=== PATIENT | male | born 1945 | race Caucasian/White ===

== ENCOUNTER 2021-11-28 22:42 | Emergency (ER) | payer MEDICARE, OTHER ==
[~2021-11-28] VITALS: Ht 188 cm; Wt 100.7 kg
[2021-11-28] MEDS ORDERED: TOPROL XL50 MG (23:08)
[2021-11-29 01:17] LABS: ABSOLUTE EOSINOPHILS 0.2 thou/uL (0.0-0.7); ABSOLUTE LYMPHOCYTES 1.6 thou/uL (0.8-5.3); ABSOLUTE MONOCYTES 0.6 thou/uL (0.0-1.2); BASOPHILS 0.6 %; EOSINOPHILS 3.3 %; HEMATOCRIT 38.8 % (42.0-52.0); HEMOGLOBIN 12.9 gm/dL (14.0-18.0); LYMPHOCYTES 24.9 %; MCH 31.9 pg (26.0-34.0); MCHC 33.3 g/dL (28.0-37.0); MCV 95.9 fL (80.0-100.0); MONOCYTES 9.3 %; MPV 7.8 fl. (7.2-11.1); NUCLEATED RBCS 0 /100WBC; PLATELET COUNT* 225 thou/uL (150-400); POLYS 61.9 %; RBC 4.05 mil/uL (4.50-6.00); RDW-CV 13.9 % (10.5-14.5); WBC 6.4 thou/uL (4.0-11.0)
[2021-11-29 01:21] LABS: CALCIUM 8.8 mg/dL (8.5-10.1); CREATININE 1.1 mg/dL (0.6-1.3); POTASSIUM 4.1 mmol/L (3.5-5.1)
[2021-11-29 01:26] LABS: ALBUMIN 3.5 g/dL (3.4-5.0); TOTAL BILIRUBIN 0.3 mg/dL (<0.1-1.0); TOTAL PROTEIN 7.2 g/dL (6.4-8.2)
[2021-11-29 02:38] VITALS: BP 131/56
--- NOTE | 2021-11-29 09:29 | EKG ---
[place] [address] ELECTROCARDIOGRAM REPORT Name: MAGALY GUTIERRES Room: [facility]#: [id number] Admission: 11/28/21 Attend Phys: Discharge: 11/29/21 Date of : 41 Date of Service: 11/28/212311 Report #: [id number] THIS REPORT FOR: //name// [facility] ED Test Date: 2021-11-28 Test Time: 23:12:32 Pat Name: MAGALY GUTIERRES Department: Room: Gender: Museum Host/Hostess: : 1945 Requested By: Rowan Griffin Order Number: [id number] MD: Erickson Jay Measurements Intervals [place] Rate: 54 P: 0 NE: 97 QRS: -2 QRSD: 167 T: 11 QT: 454 QTc: 431 Interpretive Statements Sinus rhythm Atrial premature complexes Borderline first-degree AV block Right bundle branch block Compared to ECG 03/25/2008 11:03:02 Atrial premature complex(es) now present Borderline first-degree block is noted Electronically Signed On 11-29-2021 9:29:00 ONLINE MERCHANDISING SPECIALIST by Erickson Jay [email or web address] <ELECTRONICALLY SIGNED> By: Erickson Jay MD, FACC 11/29/21 0929 11 11 Erickson Jay MD, FACC /EPI
== END 2021-11-29 02:40 | disposition home or self-care (01) ==
LOC: M.ERS 22:42
PROVIDERS: Personal Emergency Response Attendant
DX: I16.0 Hypertensive urgency (principal); Z98.61 Coronary angioplasty status; Z79.899 Other long term (current) drug therapy

== ENCOUNTER 2021-12-16 00:03 | Emergency (ER) | payer OTHER ==
[~2021-12-16] VITALS: Ht 185.4 cm; Wt 102.1 kg
[~2021-12-16 00:03] MED LIST: TOPROL XL50 MG
[2021-12-16] MEDS ORDERED: CLONIDINE HCL0.3 M3 PO (00:12)
[2021-12-16] MEDS ORDERED: COZAAR 25 MG TA25 MG PO (00:13)
[2021-12-16 00:44] LABS: ABSOLUTE BASOPHILS 0.1 thou/uL (0.0-0.2); ABSOLUTE EOSINOPHILS 0.3 thou/uL (0.0-0.7); ABSOLUTE LYMPHOCYTES 2.6 thou/uL (0.8-5.3); ABSOLUTE MONOCYTES 0.6 thou/uL (0.0-1.2); ABSOLUTE NEUTROPHILS 3.7 thou/uL (1.6-8.1); BASOPHILS 0.8 %; HEMATOCRIT 38.6 % (42.0-52.0); LYMPHOCYTES 35.9 %; MCHC 33.7 g/dL (28.0-37.0); MCV 94.9 fL (80.0-100.0); MONOCYTES 8.5 %; MPV 7.9 fl. (7.2-11.1); NUCLEATED RBCS 0 /100WBC; PLATELET COUNT* 221 thou/uL (150-400); POLYS 50.8 %; RBC 4.07 mil/uL (4.50-6.00); RDW-CV 13.5 % (10.5-14.5); WBC 7.3 thou/uL (4.0-11.0)
[2021-12-16 00:50] LABS: CALCIUM 8.8 mg/dL (8.5-10.1); POTASSIUM 3.8 mmol/L (3.5-5.1)
[2021-12-16 00:54] LABS: ALBUMIN 3.7 g/dL (3.4-5.0); MAGNESIUM 2.3 mg/dL (1.8-2.4); TOTAL BILIRUBIN 0.4 mg/dL (<0.1-1.0); TOTAL PROTEIN 7.2 g/dL (6.4-8.2)
[2021-12-16 02:23] VITALS: BP 156/78
--- NOTE | 2021-12-17 13:13 | EKG ---
[place] [address] ELECTROCARDIOGRAM REPORT Name: MAGALY GUTIERRES Room: [facility] [place]#: [id number] Admission: 12/16/21 Attend Phys: Discharge: 12/16/21 Date of : 41 Date of Service: 12/16/21 0012 Report #: [id number] THIS REPORT FOR: //name// [facility] ED Test Date: 2021-12-16 Test Time: 00:12:15 Pat Name: MAGALY GUTIERRES Department: Room: Gender: Protection Specialist: : 1945 Requested By: Noelle Morrison Order Number: [id number] MD: Meño Rodriguez Measurements Intervals [place] Rate: 52 P: -10 SD: 182 QRS: -19 QRSD: 176 T: 18 QT: 480 QTc: 447 Interpretive Statements Sinus rhythm Atrial premature complex Sinus pause Probable left atrial enlargement Right bundle branch block Compared to ECG 11/28/2021 23:12:32 Sinus pause or arrest now present Electronically Signed On 12-17-2021 13:13:17 DATA MANAGER by Meño Rodriguez [email or web address] <ELECTRONICALLY SIGNED> By: Meño Rodriguez MD, FAC 12/17/21 1313 0012 0012 Meño Rodriguez MD, [facility] /EPI
== END 2021-12-16 02:24 | disposition home or self-care (01) ==
LOC: M.ERS 00:03
PROVIDERS: Emergency Medicine
DX: I16.0 Hypertensive urgency (principal); Z79.899 Other long term (current) drug therapy